=== PATIENT | male | born 1980 | race African-American/Black ===

== ENCOUNTER 2024-10-03 09:29 | Emergency (ER) | payer MEDICAID ==
[~2024-10-03] VITALS: Ht 177.8 cm; Wt 75.0 kg
[~2024-10-03 09:29] MED LIST: AMLO5TAB88 PO; ASPI-1160 PO; CLOP-31 PO; FURO-151 MT; LIP40 PO; PROT40 MT; SUCR1TAB30 MT
[2024-10-03 09:31] VITALS: O2SAT 99
[2024-10-03 09:39] VITALS: BP 162/86; PULSE 95; RESP 20; TEMP 36.9; O2SAT 100
[2024-10-03] MEDS ORDERED: VISCOUS LIDOCAINE 2% 15 ML UDC PO ONE (10:00)
[2024-10-03] MEDS ORDERED: PANTOPRAZOLE SODIUM 40 MG/VIAL IV ONE (10:00)
[2024-10-03] MEDS ORDERED: ONDANSETRON HCL 4MG/2ML INJ IV ONE (10:00)
[2024-10-03] MEDS ORDERED: MAGNESIUM/ALUMINUM HYDROXIDE/SIMETHICONE 30ML UDC PO ONE (10:00)
[2024-10-03 10:24] LABS: HEMATOCRIT 37.4 % (42.0-52.0); HEMOGLOBIN 12.5 g/dL (14.0-18.0); MEAN CORPUSCULAR HGB CONC 33.5 g/dL (31.0-37.0); MEAN CORPUSCULAR VOLUME 89.6 fL (80.0-94.0); PLATELET 142 x1000/uL (130-400); RED BLOOD CELL COUNT 4.17 mill/uL (4.7-6.1); RED CELL DISTRIBUTION WIDTH 15.4 % (11.6-14.6); WHITE BLOOD COUNT 5.4 x1000/uL (4.5-11.0)
[2024-10-03 10:41] LABS: CHLORIDE 108 mEq/L (98-107); POTASSIUM 3.7 mEq/L (3.5-5.1); SODIUM 140 mEq/L (136-145)
[2024-10-03 10:42] LABS: CALCIUM 9.2 mg/dL (8.7-10.4); CARBON DIOXIDE 25 mEq/L (21-32)
[2024-10-03 10:47] LABS: CREATININE 1.1 mg/dL (0.6-1.3); GLUCOSE 89 mg/dL (70-105); TROPONIN I HIGH SENSITIVITY 10 ng/L (3.0-53); UREA NITROGEN BLOOD 16 mg/dL (9-23)
[2024-10-03 10:57] LABS: CLARITY URINE CLEAR (CLEAR); COLOR URINE DARK YELLOW (YELLOW); GLUCOSE URINE NEGATIVE (NEGATIVE); KETONES URINE TRACE (NEGATIVE); LEUKOCYTE ESTERASE URINE TRACE (NEGATIVE); NITRITE URINE NEGATIVE (NEGATIVE); OCCULT BLOOD URINE NEGATIVE (NEGATIVE); PH URINE 6.5 (4.5-8.0); PROTEIN URINE 1+ (NEGATIVE); SPECIFIC GRAVITY URINE 1.037 (1.005-1.030)
[2024-10-03 11:16] LABS: BACTERIA URINE NONE SEEN; RBC URINE 0-2 /hpf (0-2); SQUAMOUS EPITHELIAL CELL URINE RARE /lpf (RARE/1+); WBC URINE 0-2 /hpf (0-2); YEAST URINE NONE SEEN
[2024-10-03] MEDS ORDERED: POLY17PO3 MT (11:29)
[2024-10-03] MEDS ORDERED: CEPH500C2 MT (11:29)
[2024-10-03] MEDS ORDERED: SULF1TAB48 MT (11:29)
[2024-10-03] MEDS ORDERED: KETOROLAC 15MG/ML VIAL IV NR (11:30)
[2024-10-03] MEDS: VISCOUS LIDOCAINE 2% 15 ML UDC PO NR (11:46)
[2024-10-03] MEDS: MAGNESIUM/ALUMINUM HYDROXIDE/SIMETHICONE 30ML UDC PO NR (11:46)
[2024-10-03] MEDS: SULFAMETHOXAZOLE/TRIMETHOPRIM 800/160MG TABLET PO ONE (11:47)
[2024-10-03] MEDS: PANTOPRAZOLE 40MG DR TABLET PO ONE (11:47)
[2024-10-03] MEDS: KETOROLAC 15MG/ML VIAL IV NR (11:47)
[2024-10-03] MEDS: CEPHALEXIN 250MG CAPSULE PO ONE (11:48)
[2024-10-03] MEDS: ONDANSETRON 4MG ODT PO ONE (11:48)
== END 2024-10-03 11:58 | disposition home or self-care (01) ==
LOC: ER 09:29
DX: K61.1 Rectal abscess (principal); K62.89 Other specified diseases of anus and rectum; R07.89 Other chest pain; I11.0 Hypertensive heart disease with heart failure; I50.9 Heart failure, unspecified; Z79.02 Long term (current) use of antithrombotics/antiplatelets; Z79.82 Long term (current) use of aspirin; Z98.890 Other specified postprocedural states; Z87.19 Personal history of other diseases of the digestive system; Z79.899 Other long term (current) drug therapy
CPT/HCPCS: 80048; 81003; 83690; 85027; 84484; 36415; 71045; 74176; 93005; 96374; 99285; Q0162; J1885; Z7610

== ENCOUNTER 2025-03-14 07:04 | Emergency (ER) | payer MEDICAID ==
[~2025-03-14] VITALS: Ht 182.9 cm; Wt 81.9 kg
[~2025-03-14 07:04] MED LIST changes: +CEPH500C2 MT; +POLY17PO3 MT; +SULF1TAB48 MT
[2025-03-14 07:05] VITALS: TEMP 36.9; O2SAT 100
[2025-03-14 08:02] LABS: BASOPHILS % 0.8 % (0.0-2.0); EOSINOPHILS % 1.2 % (0.0-5.0); HEMATOCRIT. 43.0 % (42.0-52.0); HEMOGLOBIN. 14.2 g/dL (14.0-18.0); LYMPHOCYTES % 21.2 % (20.0-50.0); MEAN PLATELET VOLUME 8.9 fl (7.4-10.4); MONOCYTES % 12.9 % (2.0-8.0); NEUTROPHILS % 63.9 % (40.0-76.0); PLATELET 155 x1000/uL (130-400); RED BLOOD CELL COUNT 4.80 mill/uL (4.7-6.1); RED CELL DISTRIBUTION WIDTH 15.4 % (11.6-14.6)
[2025-03-14 08:19] LABS: CREATININE 1.0 mg/dL (0.6-1.3); TROPONIN I HIGH SENSITIVITY 20 ng/L (3.0-53); UREA NITROGEN BLOOD 15 mg/dL (9-23)
[2025-03-14 08:54] LABS: ASPARTATE AMINOTRANSFERASE 22 IU/L (<34); BILIRUBIN DIRECT 0.2 mg/dL (<=3.0); BILIRUBIN TOTAL 0.7 mg/dL (0.1-1.0); PROTEIN TOTAL 7.1 g/dL (6.0-8.3)
[2025-03-14] MEDS: NITROGLYCERIN 0.4MG TABLET SL SL ONE (08:57)
[2025-03-14] MEDS: ASPIRIN 81MG TABLET PO ONE (08:57)
[2025-03-14 11:35] VITALS: BP 155/113; PULSE 67; RESP 16; O2SAT 98
== END 2025-03-14 12:40 | disposition short-term general hospital (02) ==
LOC: ER 07:04 → CANBEDREQ 10:10 → ER 12:40
DX: R07.9 Chest pain, unspecified (principal); I11.0 Hypertensive heart disease with heart failure; I50.9 Heart failure, unspecified; Z79.899 Other long term (current) drug therapy; Z95.5 Presence of coronary angioplasty implant and graft
CPT/HCPCS: 80076; 80048; 83880; 83690; 85025; 84484; 36415; 71045; 93005; 99285; Z7610